=== PATIENT | female | born 1935 | race Two or more races ===

== ENCOUNTER 2020-10-09 00:27 | Inpatient (IN) | payer OTHER ==
[~2020-10-09] VITALS: Ht 152.4 cm; Wt 49.9 kg
--- NOTE | 2020-10-09 00:35 | NUR ---
PATIENT BIB RA FROM HOME WITH C/O DYPNEA, AAO X 4, KHMER SPEAKING BUT UNDERSTANDS SIMPLE KHMER, BREATHING EVEN AND UNLABORED, SATURATION AT 99% ON ROOM AIR. PT HAS IV LINE AT [facility] 20G PRIOR TO ADMISSION. PT WAS SEEN AND EXAMINED BY DR CARROLL. WILL CONTINUE TO MONITOR PATIENT AND CARRY OUT MD ORDERS.
[2020-10-09] MEDS ORDERED: ALBUTEROL FS 2.5 MG/0.5 ML VIAL.NEB ONE (00:47)
--- NOTE | 2020-10-09 00:53 | NUR ---
IV LINE ESTABLISHED LAC 20G, BLOOD DRAWN AND SENT TO LAB
--- NOTE | 2020-10-09 00:54 | NUR ---
RT AT BED SIDE FOR BREATHING TX
[2020-10-09] MEDS ORDERED: methylPREDNISolone SOD SUCC 125 MG/2ML VIAL ONE (00:55)
[2020-10-09] MEDS ORDERED: methylPREDNISolone SOD SUCC 125 MG/2ML VIAL IV ONE (01:00)
[2020-10-09] MEDS ORDERED: ALBUTEROL FS 2.5 MG/0.5 ML VIAL.NEB NEB ONE (01:00)
[2020-10-09 01:02] LABS: BASOPHILS # (AUTO) 0.1 K/uL (0.0-0.2); BASOPHILS % (AUTO) 0.7 % (0.0-2.0); EOSINOPHILS % (AUTO) 2.4 % (0.0-6.0); HEMATOCRIT 38 % (33-45); HEMOGLOBIN 12.4 g/dL (11.5-14.8); LYMPHOCYTES # (AUTO) 2.4 K/uL (0.8-4.8); LYMPHOCYTES % (AUTO) 19.5 % (20.0-44.0); MEAN CORPUSCULAR HGB CONC 33 g/dl (31.0-36.0); MEAN CORPUSCULAR VOLUME 90 fL (82-100); MONOCYTES # (AUTO) 0.9 K/uL (0.1-1.30); MONOCYTES % (AUTO) 7.5 % (2.0-12.0); NEUTROPHILS # (AUTO) 8.6 K/uL (1.8-8.9); NEUTROPHILS % (AUTO) 69.9 % (43.0-81.0); PLATELET COUNT (AUTO) 375 K/uL (150-450); RED BLOOD CELL COUNT(AUTO) 4.19 MIL/uL (4.0-5.2); WHITE BLOOD COUNT (AUTO) 12.3 K/uL (4.3-11.0)
--- NOTE | 2020-10-09 01:03 | NUR ---
COVID SWAB COLLECTED AND SENT TO LAB
[2020-10-09 01:27] LABS: CARBON DIOXIDE 29 mmol/L (21-32); CHLORIDE 102 mmol/L (98-107); CREATININE 0.7 mg/dL (0.6-1.3); GLUCOSE 210 mg/dL (74-106); POTASSIUM 3.3 mmol/L (3.5-5.1); SODIUM SERUM 141 mmol/L (136-145); UREA NITROGEN, BLOOD 22 mg/dL (7-18)
--- NOTE | 2020-10-09 01:28 | NUR ---
LACTIC ACID 3.2
[2020-10-09 01:33] LABS: ALANINE AMINOTRANSFERASE 21 U/L (12-78); ALBUMIN 3.6 g/dL (3.4-5.0); ALKALINE PHOSPHATASE 101 U/L (46-116); ASPARTATE AMINOTRANSFERASE 24 U/L (15-37); BILIRUBIN,DIRECT 0.1 mg/dL (0.0-0.2); BILIRUBIN,TOTAL 0.5 mg/dL (0.2-1.0); TOTAL PROTEIN, SERUM 7.8 g/dL (6.4-8.2)
--- NOTE | 2020-10-09 01:54 | NUR ---
COVID PCR SWAB COLLECTED AND SENT TO LAB
--- NOTE | 2020-10-09 02:00 | NUR ---
SPOKE WITH PT DAUGHTER, ABRAM, REGARDING CURRENT PT STATUS. WAS PROVIDED WITH HER PHONE NUMBER FOR [phone], SAID SHE WANTS TO GET NOTIFIED FOR ANY UPDATES.
[2020-10-09] MEDS ORDERED: FUROSEMIDE 40 MG/4 ML VIAL ONE (02:39)
[2020-10-09] MEDS ORDERED: NITROGLYCERIN PACKET 1 GM PACKET ONE (02:39)
--- NOTE | 2020-10-09 02:51 | NUR ---
BED 103
[2020-10-09] MEDS ORDERED: NITROGLYCERIN PACKET 1 GM PACKET TOP ONE (03:00)
[2020-10-09] MEDS ORDERED: FUROSEMIDE 40 MG/4 ML VIAL IV ONE (03:00)
--- NOTE | 2020-10-09 04:21 | NUR ---
er md spoke to dr. huff regarding pt admission.
[2020-10-09] MEDS ORDERED: POTASSIUM CHLORIDE 10 MEQ TABLET.SA PO ONE (04:30)
[2020-10-09] MEDS ORDERED: ONDANSETRON HCL/PF 4 MG/2 ML VIAL IVP PRN (04:30)
[2020-10-09] MEDS ORDERED: MAG HYDROX/AL HYDROX/SIMETH 30 ML UDC PO PRN (04:30)
[2020-10-09] MEDS ORDERED: Z GUARD REMEDY 2 OZ OINT TP PRN (04:30)
[2020-10-09] MEDS ORDERED: ACETAMINOPHEN 325 MG TABLET PO PRN (04:30)
[2020-10-09] MEDS ORDERED: MAGNESIUM HYDROXIDE 30 ML UDC PO PRN (04:30)
[2020-10-09] MEDS ORDERED: ZOLPIDEM TARTRATE 5 MG TABLET PO PRN (04:30)
--- NOTE | 2020-10-09 04:55 | NUR ---
REPORT GIVEN TO IMELDA BYRD AT BEDSIDE. PT TRANSFERRED TO TELE RM 103 IN A GURNEY ACCOMPANIED BY RN AND EMT IN STABLE CONDITION, LATEST BP 135/91.
[2020-10-09] MEDS: methylPREDNISolone SOD SUCC 125 MG/2ML VIAL IV SCH ×3 (05:01→21:14)
[2020-10-09] MEDS ORDERED: IPRATROPIUM NEB FS 0.5 MG/2.5 ML AMPUL.NEB NEB SCH (07:35)
[2020-10-09] MEDS ORDERED: ALBUTEROL FS 2.5 MG/3 ML VIAL.NEB NEB SCH (07:35)
[2020-10-09] MEDS ORDERED: METF-440 PO (07:36)
--- NOTE | 2020-10-09 07:44 | NUR ---
UNDERGROUND UTILITY LOCATOR OPENING NOTES RECEIVED PATIENT IN BED, ASLEEP PATIENT AWAKEN EASILY. ON ROOM AIR; BREATHING EVEN AND UNLABORED AT THIS TIME. NO COMPLAINS OF PAIN. TELE MONITOR WITH A CURRENT READING OF ST 108. IV ACCESS ON LAC SL. SAFETY PRECAUTIONS IN PLACE; BED IN LOW POSITION AND LOCKED, RAILS UP X2, CALL LIGHT WITHIN REACH. WILL CONTINUE TO MONITOR PATIENT.
[2020-10-09] MEDS: FUROSEMIDE 40 MG/4 ML VIAL IV SCH (08:03)
[2020-10-09] MEDS: POTASSIUM CL. PREMIX PERIPHER. 50 ML IV SCH ×2 (09:03→10:20)
[2020-10-09 09:50] VITALS: BP 150/85
[2020-10-09] MEDS: ENOXAPARIN SODIUM 40 MG/0.4 ML DISP.SYRIN SQ SCH (10:30)
[2020-10-09] MEDS: IPRATROPIUM/ALBUTEROL INHALER IH SCH ×2 (11:21→17:09)
--- NOTE | 2020-10-09 12:00 | NUR ---
PRESS TENDER SHORT GOODS NOTES PATIENT REFUSES TELE MONITORING
[2020-10-09 12:10] VITALS: BP 145/90
[2020-10-09 16:01] VITALS: BP 148/80
--- NOTE | 2020-10-09 18:49 | NUR ---
BIOMETRIC FINGERPRINTING TECHNICIAN CLOSING NOTES PATIENT REMAINS IN BED, AWAKE, WATCHING TV. A/O X3. ON ROOM AIR; BREATHING EVEN AND UNLABORED AT THIS TIME. NO COMPLAINS OF PAIN. PATIENT REFUSES TELE MONITOR. IV ACCESS ON LAC SL. ALL NEEDS ATTENDED DURING THE DAY. SAFETY PRECAUTIONS IN PLACE; BED IN LOW POSITION AND LOCKED, RAILS UP X2, CALL LIGHT WITHIN REACH. WILL ENDORSE TO PASTEURIZING SUPERVISOR NURSE.
--- NOTE | 2020-10-09 19:08 | NUR ---
CONTINUITY OF CARE Patient is awake, alert. Oxygen saturation 98% on room air, no c/o sob. Understand and speaks some [place]. Per report patient refused Tele monitor. Declined education. Patient no complains of chest pain. Left AC IV peripheral line intact, flushes well. Will cont to provide care.
[2020-10-09 20:00] VITALS: BP 134/81
[2020-10-10 00:37] VITALS: BP 118/71
[2020-10-10] MEDS: IPRATROPIUM/ALBUTEROL INHALER IH SCH ×2 (00:59→06:12)
--- NOTE | 2020-10-10 03:58 | NUR ---
BLOOD CX RESULT Lab called Blood cx (10/09/20) prelim results gram positive cocci in clusters. Patient not on abx. Afebrile. Awaiting orders.
[2020-10-10 05:01] VITALS: BP 129/83
[2020-10-10] MEDS: methylPREDNISolone SOD SUCC 125 MG/2ML VIAL IV SCH (05:27)
[2020-10-10 06:26] LABS: CREATININE 0.9 mg/dL (0.6-1.3); MAGNESIUM 2.2 mg/dL (1.8-2.4); PHOSPHORUS 3.6 mg/dL (2.5-4.9); POTASSIUM 4.4 mmol/L (3.5-5.1)
[2020-10-10 06:30] LABS: BASOPHILS % (AUTO) 0.1 % (0.0-2.0); HEMATOCRIT 36 % (33-45); HEMOGLOBIN 12.3 g/dL (11.5-14.8); LYMPHOCYTES # (AUTO) 0.7 K/uL (0.8-4.8); LYMPHOCYTES % (AUTO) 6.4 % (20.0-44.0); MEAN CORPUSCULAR HGB CONC 34 g/dl (31.0-36.0); MEAN CORPUSCULAR VOLUME 89 fL (82-100); MONOCYTES # (AUTO) 0.4 K/uL (0.1-1.30); MONOCYTES % (AUTO) 3.7 % (2.0-12.0); NEUTROPHILS # (AUTO) 10.3 K/uL (1.8-8.9); NEUTROPHILS % (AUTO) 89.8 % (43.0-81.0); PLATELET COUNT (AUTO) 402 K/uL (150-450); RED BLOOD CELL COUNT(AUTO) 4.09 MIL/uL (4.0-5.2); WHITE BLOOD COUNT (AUTO) 11.5 K/uL (4.3-11.0)
--- NOTE | 2020-10-10 06:44 | NUR ---
END OF SHIFT REPORT Patient is A/O x3. Oxygen saturation in high 90's, no c/o sob, denies chest pain, tolerating room air. Patient refusing Tele monitor in the last 18 hours, education given. Headache improved with Tylenol, afebrile. No c/o N/V. Blood cx prelim results Gram positive cocci in clusters, awaiting orders, will endorse to oncoming RN.
--- NOTE | 2020-10-10 07:15 | NUR ---
INTERACTIVE GRAPHIC DESIGNER OPENING NOTES RECEIVED PATIENT IN BED, ASLEEP PATIENT AWAKEN EASILY. PATIENT IS A/O X3, ON ROOM AIR; BREATHING EVEN AND UNLABORED AT THIS TIME. NO COMPLAINS OF PAIN. TELE MONITOR IS BEING REFUSED AT THIS TIME, MD AWARE. IV ACCESS ON LAC #20 PATENT AND INTACT SL. SAFETY PRECAUTIONS IN PLACE; BED IN LOW POSITION AND LOCKED, RAILS UP X2, CALL LIGHT WITHIN REACH. WILL CONTINUE TO MONITOR PATIENT.
[2020-10-10 08:00] VITALS: BP 140/78
[2020-10-10] MEDS: ENOXAPARIN SODIUM 40 MG/0.4 ML DISP.SYRIN SQ SCH (08:07)
[2020-10-10] MEDS: FUROSEMIDE 40 MG/4 ML VIAL IV SCH (08:07)
[2020-10-10] MEDS ORDERED: PRED20TA PO (10:36)
[2020-10-10] MEDS ORDERED: FURO-145 PO (10:36)
--- NOTE | 2020-10-10 11:43 | NUR ---
SOCIAL WORK MSW NOTE RECEIVED DISCHARGE ORDER FOR PATIENT. PATIENT IS A/O X4. PATIENT IS BREATHING EVENLY AND NONLABORED ON ROOM AIR. PATIENT DOES NOT SHOW ANY SIGNS OF DISTRESS. PATIENT DOES NOT COMPLAIN OF ANY PAIN AT THIS TIME. PATIENT WAS GIVEN DISCHARGE INSTRUCTIONS BOTH VERBALLY AND IN WRITTEN FORM. PATIENT VERBALIZED UNDERSTANDING. PATIENT'S IV ACCESS REMOVED CATHETER TIP INTACT AND PRESSURE DRESSING APPLIED. NO SIGNS OF BLEEDING. ALL BELONGINGS ACCOUNTED FOR AND FORM SIGNED, ID BAND REMOVED. PATIENT LEFT IN STABLE CONDITION VIA PRIVATE CAR.
== END 2020-10-10 11:20 | disposition home or self-care (01) | DRG 291 ==
LOC: ER 00:30 → TELE1 03:56
PROVIDERS: ADMIT Internal Medicine; ATTEND Internal Medicine
DX: I11.0 Hypertensive heart disease with heart failure (principal); J96.01 Acute respiratory failure with hypoxia; N17.0 Acute kidney failure with tubular necrosis; J45.901 Unspecified asthma with (acute) exacerbation; I50.43 Acute on chronic combined systolic (congestive) and diastolic (congestive) heart failure; E11.9 Type 2 diabetes mellitus without complications; J45.909 Unspecified asthma, uncomplicated; E87.6 Hypokalemia; D72.829 Elevated white blood cell count, unspecified; Z20.822 Contact with and (suspected) exposure to COVID-19; Z79.84 Long term (current) use of oral hypoglycemic drugs; R78.81 Bacteremia
CPT/HCPCS: 36415; 71045-TC; 71250-TC; 80048-TC; 80061-TC; 80076-TC; 83605-TC; 83735-TC; 83880; 84100-TC; 84484-TC; 85025-TC; 85730-TC; 87040-TC; 87081-TC; 93307-TC; C9803; G0378; J1650; J1940; J2930; J3480; J7050; U0003